=== PATIENT | male | born 1965 | race Caucasian/White ===

== ENCOUNTER → 2022-02-22 08:37 | Outpatient (CLI) | payer OTHER, SELFPAY ==
--- NOTE | ~2022-02-22 | CT_ITS ---
EXAMINATION: CT abdomen pelvis wo con DATE: 02/22/2022 08:52 INDICATION: Hematuria. TECHNIQUE: Computed tomography (CT) of the abdomen and pelvis was performed without intravenous contr ast. The dose-length product was 477.77 mGy-cm. Automated exposure control and iterative reconstructi on technique were employed. COMPARISON: No prior studies for comparison. FINDINGS: Lung bases are unremarkable. Heart size normal. No significant pleural or pericardial effus ion. No significant vascular abnormality. No lymphadenopathy. There are nonobstructing right renal st ones, largest measuring 5 mm. Gallbladder is present. Nonobstructive bowel gas pattern. No free air o r free fluid. Mild lumbar spondylosis. IMPRESSION: 1. Nonobstructing right nephrolithiasis. Reviewed, dictated and finalized at location B.
== END ==
PROVIDERS: PCP Family Medicine; Visit Provider Family Medicine
DX: R31.9 Hematuria, unspecified (principal); N20.0 Calculus of kidney
CPT/HCPCS: 74176

== ENCOUNTER 2022-04-16 16:54 | Outpatient (CLI) | payer OTHER, SELFPAY ==
[2022-04-16 17:17] LABS: Prothrombin Time 13.1 Seconds (11.1-14.7)
[2022-04-16 17:18] LABS: Partial Thromboplastin Time 29.6 SECONDS (22.3-36.8)
== END 2022-04-16 16:55 | disposition home or self-care (01) ==
LOC: ANHLAB 16:55
PROVIDERS: PCP Family Medicine; Visit Provider Urology
DX: N20.0 Calculus of kidney (principal); Z01.818 Encounter for other preprocedural examination
CPT/HCPCS: 36415; 85610; 85730; 87086

== ENCOUNTER 2022-04-19 01:24 | Day surgery (SDC) | payer OTHER, SELFPAY ==
[2022-04-15 10:19] VITALS: BMI 22.9
--- NOTE | 2022-04-15 10:28 | PC.NURSE ---
Report to the Outpatient Waiting Room, entrance under the green pavilion located off [facility], at time 9:30 on date 04/19/22. OR Time: 11:30. - You and your visitor will be asked a series of questions to screen for COVID 19 for your protection. - Only one visitor is allowed at this time. - The patient visitor is requested to leave or wait in car when not with patient. - A mask is required within the hospital. Patients may have clear liquids (water, carbonated beverages, clear teas, apple juice) until 3 hours prior to surgery (8:30) with a maximum of 20 ounces. - No food from midnight until time of surgery Take the following medications with a SIP of water the morning of surgery: NONE Medications to discontinue per physician: N/A Date to take last dose: N/A Please no make-up, nail rwandan, hairspray, perfume, deodorant, or body powder the day of surgery. No jewelry (including any body piercings) or valuables the day of surgery, leave them at home. Please take a shower or bath the night before, or the morning of, surgery with an antibacterial soap. Wear comfortable, loose fitting clothing. - Jewelry must be removed prior to entering the operating room. Rings and piercings that are not removed may be cut off. - The hospital will not accept responsibility for valuables. - Please leave all valuables, including medications, at home the day of surgery. If you are going home after surgery, a licensed rickshaw driver must drive you home. - NO public transportation without another adult. - We recommend that an adult stay with you for 24 hours following discharge. - We also recommend that you do not drive, make important decision, drink alcoholic beverages, or take any drugs that were not prescribed by your health care provider for at least 24 hours after your discharge time. Follow any additional instructions given to you from your surgeon. If you or anyone in your household have experienced Covid symptoms in the past week, please notify your surgeon or the nurse liaison at the phone number below for possible testing. Telephone instructions given to PT - HERMAN STOCK and asked if any additional questions and then verbalized understanding. Patient advised to call surgeon office or pre surgery nurse liaison [phone] if any additional questions.
--- NOTE | 2022-04-18 15:25 | WPDANESEPPF ---
Anes - Initial Pre Proc Eval Procedure: Operation Date: 04/19/22 11:30 Proposed Procedures p Right Renal Extracorporeal Shock Wave Lithotripsy - Gordo Messer MD Date/Time: 04/18/22 15:25 Surgeon: Gordo Messer MD Pre Op Diagnosis: Rt Kidney Stone Patient Data Age: 56 Gender: M Height: 1.78 m Weight: 72.57 kg Allergies Allergy/AdvReac Type Severity Reaction Status Date / Time No Known Allergies Allergy Verified 04/15/22 10:18 Home Medications Medication Instructions Recorded Confirmed Type omeprazole 20 mg tablet,delayed 20 mg PO DAILY PRN Acid Reflux 04/15/22 04/15/22 History release Patient hx anesthesia problems: none Family hx anesthesia problems: none Results Review: All pre-operative results and documents have been reviewed as part of the pre-operative evaluation. [facility] Past Medical History Medical History (Updated 04/18/22 @ 15:27 by Stone Cortez MD) Chronic GERD Ureterolithiasis Social History Social History Smoking status: Never smoker Alcohol intake: current Alcohol use details: RARE Substance use: never Substance use type: does not use Living arrangements: with family Spiritual care concerns: No Anes - Eval Final PreProcedure Day of Procedure 04/18/22 15:25 Patient weight: normal Heart: regular rate and rhythm Lungs: clear to auscultation and normal air movement Airway: Mallampati scale class II Neurological: alert and oriented Last oral intake: >/= 8 hours ASA classification: II Emergent: no Anesthetic plan: proceed Anesthesia type and monitoring: general LMA Results Review: All pre-operative results and documents have been reviewed as part of the pre-operative evaluation. Informed Consent: The patient's anesthetic plan and its attendant risks and benefits were discussed with the patient/family/POA. Questions were solicited and answers provided to the satisfaction of the patient/family/POA.
[2022-04-19] VITALS (7 sets, daily range): BP systolic 117–150; BP diastolic 76–94; PULSE 39–71; RESP 12–18; TEMP 36.8; O2SAT 100
--- NOTE | ~2022-04-19 | XR_ITS ---
EXAMINATION: XR abdomen/kub 1V DATE: 04/19/2022 09:41 INDICATION: Right kidney stone. TECHNIQUE: A supine view of the abdomen on 2 radiographs was obtained. COMPARISON: CT abdomen and pelvis 02/22/2022 FINDINGS: There are no dilated loops of bowel. There are stones in right kidney lower pole measuring up to 4 mm. A 6 mm density overlying right L3 transverse process does not correlate with the stones s een on the prior CT and may be in bowel. IMPRESSION: 1. Stones in right kidney. Reviewed, dictated and finalized at location A. IMPRESSION: 1. Stones in right kidney.
--- NOTE | 2022-04-19 09:12 | WPDHPUPDATE1 ---
History and Physical Update Update Date/Time: 04/19/22 09:12 History and Physical has been reviewed, including an updated exam of the patient. There are NO changes in the patient's condition. Risks, benefits, and alternatives have been discussed and questions answered. Patient agrees to proceed with procedure. Proceed with lithotripsy right renal calculus
[2022-04-19] MEDS: LACTATED RINGERS 1,000 ML 30 ML IV CONT (10:00)
[2022-04-19] MEDS: ceFAZolin 2 GM/D5W 50 ML 2 GM/50 ML BAG IVPB (11:00)
--- NOTE | 2022-04-19 11:44 | P.OP_ITS ---
Procedure Note - Detailed Date of Procedure 04/19/22 Pre-op Diagnosis Rt Kidney Stone Post-op Diagnosis Same Procedure Performed Lithotripsy right renal calculus Surgeon Gordo Messer MD Anesthesia General Description of Procedure Patient is taken the operative suite correctly identified. Once anesthesia was obtained the right lower pole stone was localized in both planes. Two thousand five hundred shocks were given stone. Patient tolerated procedure well without any complications was taken recovery stable condition. He will follow-up in 7- 10 days with a KUB. Drains No Packing No Pathology None sent Complications No immediate complications Condition Stable Disposition PACU
== END 2022-04-19 13:27 | disposition home or self-care (01) ==
PROVIDERS: PCP Family Medicine; Visit Provider Urology
PROC: (CPT 50590; principal; 2022-04-19 11:30)
DX: N20.0 Calculus of kidney (principal); K21.9 Gastro-esophageal reflux disease without esophagitis
CPT/HCPCS: 50590; 74018; J0690; J1100; J2250; J2405; J2704; J7120